=== PATIENT | female | born 2000 | race Caucasian/White ===

== ENCOUNTER 2022-04-14 11:26 | Emergency (ER) | payer MEDICAID, OTHER ==
[~2022-04-14] VITALS: Ht 170.2 cm; Wt 50.8 kg
[2022-04-14 17:47] LABS: Influenza A, PCR NEGATIVE (NEGATIVE); Influenza B, PCR NEGATIVE (NEGATIVE); SARS-Cov-2 (COVID-19) PCR, MMC NEGATIVE (NEGATIVE)
[2022-04-14 17:58] LABS: Resp Syncytial Virus, PCR POSITIVE (NEGATIVE)
[2022-04-14] MEDS ORDERED: DEXT30SU PO ×2 (18:05→18:50)
[2022-04-14] MEDS ORDERED: ALBU90OI INH ×2 (18:05→18:50)
[2022-04-14] MEDS ORDERED: METPRE4DP PO ×2 (18:05→18:50)
== END 2022-04-14 18:50 | disposition home or self-care (01) ==
LOC: ER 11:26
PROVIDERS: Physician Assistant
DX: J21.0 Acute bronchiolitis due to respiratory syncytial virus (principal); J45.909 Unspecified asthma, uncomplicated; Z20.822 Contact with and (suspected) exposure to COVID-19
CPT/HCPCS: 0241U; 71046; A9270; J1100

== ENCOUNTER 2022-04-19 15:15 | Emergency (ER) | payer OTHER ==
[~2022-04-19] VITALS: Ht 170.2 cm; Wt 50.8 kg
[~2022-04-19 15:15] MED LIST: ALBU90OI INH; DEXT30SU PO; METPRE4DP PO
== END 2022-04-19 17:04 | disposition home or self-care (01) ==
LOC: ER 15:15
DX: J06.9 Acute upper respiratory infection, unspecified (principal); J45.909 Unspecified asthma, uncomplicated
CPT/HCPCS: 71046

== ENCOUNTER 2022-04-21 10:29 | Emergency (ER) | payer OTHER ==
[~2022-04-21] VITALS: Ht 170.2 cm; Wt 52.2 kg
[2022-04-29] MEDS ORDERED: CEFU250T47 PO ×3 (10:03→10:12)
== END 2022-04-21 11:37 | disposition home or self-care (01) ==
LOC: ER 10:29
DX: B09 Unspecified viral infection characterized by skin and mucous membrane lesions (principal); J45.909 Unspecified asthma, uncomplicated; Z88.0 Allergy status to penicillin; Z79.899 Other long term (current) drug therapy
CPT/HCPCS: 99282